=== PATIENT | female | born 1990 | race Caucasian/White ===

== ENCOUNTER 2017-04-20 08:40 | Emergency (ER) | payer OTHER ==
[~2017-04-20] VITALS: Ht 165.1 cm; Wt 61.2 kg
[~2017-04-20 08:40] MED LIST: BENTYL20 MG PO; LYZA0.35 MG PO; MOTRIN800 MG PO; NATURAL IRON65 MG PO; PERCOCET 325 MG1 TA2 PO; POLYTRIM O200 GTT/BO OPH
--- NOTE | 2017-04-20 09:06 | ED GI/GU/ABDOMINAL COMPLAINT ---
History of Present Illness General Chief Complaint: Female Urogenital Problems Stated Complaint: S/P FALL YESTERDAY 4 WEEKS Source: patient, family Exam Limitations: no limitations Vital Signs & Intake/Output Vital Signs & Intake/Output Vital Signs Date Time Temp Pulse Resp B/P B/P Pulse O2 O2 Flow FiO2 Mean Ox Delivery Rate 04/20 0918 Room Air Room Air 04/20 0854 98.9 110 18 115/74 100 Room Air Allergies Coded Allergies: NO KNOWN ALLERGIES (06/15/14) Reconcile Medications FERROUS SULFATE (IRON) 325 MG (65 MG IRON) TABLET 1 TAB PO DAILY ANEMIA ( Reported) Ibuprofen (Motrin) 800 MG TAB 1 TAB PO Q8H PRN PAIN Norethindrone (Lyza) 0.35 MG TABLET 1 TAB PO DAILY BC (Reported) OXYCODONE HCL/ACETAMINOPHEN (Percocet 5-325 MG Tablet) 325 MG/5 MG TAB 1 TAB PO Q4-6 PRN PRN PAIN Polytrim (Polytrim Eye Drops) 10,000 UNIT-1 MG/ML DROPS 1 DROP OPH 4 TIMES/DAY CORNEAL ABRASION Triage Note: PT TO ED S/P FALL DOWN STAIRS LAST NIGHT, PT EXTREMELY HISTRIONIC IN TRIAGE, VERY DIFFICULT TO ASSESS DUE TO CRYING AND HYPERVENTILATING. PT REPORTING SHE IS CURRENTLY 4 WEEKS AND "HAS BEEN BLEEDING FOR TWO DAYS" REPORTING SHE FELL AT [facility] 9PM LAST NIGHT, REPORTING SHE WANTED TO BE SEEN THIS AM "BECAUSE I COULDN'T STAY CALM" PT UNABLE TO QUANITFY HOW MUCH SHE IS BLEEDING, NO GROSS DEFORMITY NOTED ANYWHERE, NO SIGNS OF BRUISING OR TRAUMA, PT REPORTING "EVERY CELL IN MY BODY HURTS" NO CERVICAL POINT TENDERNESS. REPORTING SHE DID NOT HIT HEAD, NO LOC. HAS HAD NO CARE YET, UNABLE TO IDENTIFY IF SHE HAS AN OB, STATING "I DIDNT GET CARE UNTIL I WAS 7 MONTHS WITH MY SON BEFORE" Triage Nurses Notes Reviewed? yes ? y Is pt currently ? No HPI: Patient was out working in the yard all day yesterday. Patient is 4-6 weeks . Patient states that she has been nauseous and vomiting for pretty much the entire . 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 Patient states that he was carrying garbage outside when she felt lightheaded and tripped and fell down a flight of stairs. The stairs were wooden. There was no loss of consciousness. This occurred last night. Since then she has had pain to the right side of her neck that radiates into her right shoulder. The pain increases with movement. She rates the pain at 6 out of 10. The pain is throbbing in nature. Patient is also having pelvic cramping. Patient states that she passed a large blood clot last night and has been spotting since then. The cramping is constant. There are no aggravating or mitigating factors. There is no radiation. She rates the pelvic pain at 4 out of 10. She denies any headache or lightheadedness. There is no blurry vision. Past History Travel History Traveled to [place] past 21 day No Medical History Any Pertinent Medical History? 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 Surgical History Surgical History: non-contributory, N Psychosocial History What is your primary language Monegasque Tobacco Use: Never used ETOH Use: denies use Illicit Drug Use: denies illicit drug use Family History Hx Contributory? No Review of Systems Review of Systems Constitutional: Reports: no symptoms. EENTM: Reports: no symptoms. Respiratory: Reports: no symptoms. Cardiovascular: Reports: no symptoms. GI: Reports: see HPI, abdominal pain, nausea, vomiting. Genitourinary: Reports: no symptoms. Musculoskeletal: Reports: see HPI, neck pain. Skin: Reports: no symptoms. Neurological/Psychological: Reports: no symptoms. Hematologic/Endocrine: Reports: no symptoms. Immunologic/Allergic: Reports: no symptoms. All Other Systems: Reviewed and Negative Physical Exam Physical Exam General Appearance: well developed/nourished, alert, awake, anxious, mild distress Head: atraumatic, normal appearance Eyes: Bilateral: PERRL, EOMI. Ears, Nose, Throat, Mouth: hearing grossly normal, moist mucous membrane Neck: normal inspection, supple, full range of motion, tender lateral, no midline tenderness Respiratory: normal breath sounds, chest non-tender, no respiratory distress, lungs clear Cardiovascular: regular rate/rhythm, normal peripheral pulses Gastrointestinal: normal bowel sounds, soft, no organomegaly, tenderness ( SUPRAPUBIC) Back: normal inspection, normal range of motion Extremities: normal range of motion Neurologic/Psych: no motor/sensory deficits, awake, alert, oriented x 3, normal gait, normal mood/affect Skin: intact, normal color, warm/dry Core Measures ACS in differential dx? No Severe Sepsis Present: No Septic Shock Present: No Progress Differential Diagnosis: ectopic , intrauterine , threatened AB , UTI/pyelo Plan of Care: Orders Procedure Date/time Status TYPE & SCREEN (NOT X-MATCH) 04/20 911 Complete HUMAN BETA HCG TITRE 04/20 857 Complete COMPREHENSIVE METABOLIC PANEL 04/20 857 Complete CBC WITHOUT DIFFERENTIAL 04/20 857 Complete URINALYSIS 04/20 846 Active Laboratory Tests 04/20/17910: Anion Gap 17 H, Estimated GFR > 60, BUN/Creatinine Ratio 15.7, Glucose 93, Calcium 10.2, Total Bilirubin 1.0, AST 15, ALT 25, Alkaline Phosphatase 52, Total Protein 7.7, Albumin 4.7, Globulin 3.0, Albumin/Globulin Ratio 1.6, Beta HCG, Quant < 2.4, CBC w Diff NO MAN DIFF REQ, RBC 4.69, MCV 87.3, MCH 29.3, RDW 13.0, MPV 7.9, Gran % 73.8, Lymphocytes % 22.8, Monocytes % 2.2, Eosinophils % 0.3, Basophils % 0.9, Absolute Granulocytes 4.9, Absolute Lymphocytes 1.5, Absolute Monocytes 0.1 L, Absolute Eosinophils 0, Absolute Basophils 0.1, PUBS MCHC 33.6 Diagnostic Imaging: Viewed by Me: Ultrasound. Discussed w/RAD: Ultrasound. Radiology Impression: PATIENT: BLANCO DIALLO PRESENT AGE: 26 PATIENT ACCOUNT NO: [id number] : 89 LOCATION: [facility] ORDERING PHYSICIAN: CYDNEY JACKSON MD SERVICE DATE: 04/20/17 EXAM TYPE: US - US TRANSVAG EXAMINATION: US TRANSVAGINAL CLINICAL INFORMATION: Four to six weeks . Fell down stairs. Bleeding. Pelvic pain. COMPARISON: None TECHNIQUE: Real-time ultrasound was performed transvaginally using a 8 MHz transducer. FINDINGS: The uterus is retroverted in position. Within the endometrial cavity, no gestational sac/no intrauterine is seen. Thin normal endometrial echo complex measures 3 mm in thickness. Incidental small nabothian cysts. The right ovary measures 4 x 2.2 x 3.0 cm, and the left ovary measures 3.6 x 2.6 x 2.6 cm. Normal ovarian follicles are seen. Normal color Doppler flow in the bilateral ovaries. No evidence of adnexal mass. Other significant findings: Jvish-jm-laqsktkz free fluid is seen posterior to the uterus. IMPRESSION: No intrauterine or gestational sac is seen. No evidence of adnexal mass. Ohgcu-yj-[id number] pelvic free fluid. DICTATED BY: CHUCK HOUSE MD DATE/TIME DICTATED:04/20/171014 [employer] ENGINEER:PAUL DATE/TIME TRANSCRIBED:04/20/171014 CONFIDENTIAL, DO NOT COPY WITHOUT APPROPRIATE AUTHORIZATION. <Electronically signed in Other Vendor System> SIGNED BY: CHUCK HOUSE MD 04/20/17 1029 Initial ED EKG: none Comments: Patient now states that the pelvic cramping and vaginal bleeding and spotting started 5 days ago and that she just passed the clot last night after falling down the stairs. Departure Departure Disposition: HOME OR SELF CARE Condition: Stable Clinical Impression Primary Impression: Miscarriage Secondary Impressions: Cervical strain Qualifiers: Encounter type: initial encounter Qualified Code: S16.1XXA - Strain of muscle, fascia and tendon at neck level, initial encounter Referrals: CHANTALE VAUGHAN DO (PCP/Family) Additional Instructions: use moist heat] take zofran as needed for nausea take flexeril as needed for pain and spasm return for any concerns Departure Forms: Customer Survey General Discharge Information Prescriptions: Current Visit Scripts Cyclobenzaprine HCl 1 TAB PO Q8P #20 TAB Ondansetron (Zofran Odt) 1 TAB SL TID PRN NAUSEA #10 TAB
[2017-04-20 09:22] LABS: ABSOLUTE BASOPHIL COUNT 0.1 /CUMM (0.0-0.2); ABSOLUTE EOSINOPHIL COUNT 0 /CUMM (0.0-0.7); ABSOLUTE GRANULOCYTE CT 4.9 /CUMM (1.4-6.5); ABSOLUTE LYMPH COUNT 1.5 /CUMM (1.2-3.4); ABSOLUTE MONOCYTE COUNT 0.1 /CUMM (0.10-0.60); BASOPHIL % 0.9 % (0.0-2.0); EOSINOPHIL % 0.3 % (0-5); GRANULOCYTE % 73.8 % (42.2-75.2); HEMATOCRIT 40.9 % (37-47); MEAN CORPUSCULAR HGB 29.3 PG (27.0-31.0); MEAN CORPUSCULAR HGB CONC 33.6 G/DL (33.0-37.0); MEAN CORPUSCULAR VOLUME 87.3 FL (81.0-99.0); MEAN PLATELET VOLUME 7.9 FL (7.4-10.4); PLATELET COUNT 252 /CUMM (130-400); RED BLOOD CELL CT 4.69 /CUMM (4.20-5.40); WHITE BLOOD CELL COUNT 6.6 /CUMM (4.8-10.8)
--- NOTE | 2017-04-20 10:29 | ULTRASOUND REPORT ---
EXAMINATION: US TRANSVAGINAL CLINICAL INFORMATION: Four to six weeks . Fell down stairs. Bleeding. Pelvic pain. COMPARISON: None TECHNIQUE: Real-time ultrasound was performed transvaginally using a 8 MHz transducer. FINDINGS: The uterus is retroverted in position. Within the endometrial cavity, no gestational sac/no intrauterine is seen. Thin normal endometrial echo complex measures 3 mm in thickness. Incidental small nabothian cysts. The right ovary measures 4 x 2.2 x 3.0 cm, and the left ovary measures 3.6 x 2.6 x 2.6 cm. Normal ovarian follicles are seen. Normal color Doppler flow in the bilateral ovaries. No evidence of adnexal mass. Other significant findings: Ooram-ze-fmdatjpd free fluid is seen posterior to the uterus. IMPRESSION: No intrauterine or gestational sac is seen. No evidence of adnexal mass. Pqdbr-na-biymumpx pelvic free fluid.
[2017-04-20 10:50] VITALS: BP 106/65
[2017-04-20] MEDS ORDERED: ZOFRAN ODT4 M1 SL (10:50)
[2017-04-20] MEDS ORDERED: CYCLOBENZAPRINE10 M1 PO (10:50)
== END 2017-04-20 10:55 ==
LOC: ERH 08:40
PROVIDERS: Emergency Medicine
DX: S16.1XXA Strain of muscle, fascia and tendon at neck level, initial encounter (principal); O03.9 Complete or unspecified spontaneous abortion without complication; W10.9XXA Fall (on) (from) unspecified stairs and steps, initial encounter; Y92.9 Unspecified place or not applicable; Y93.9 Activity, unspecified
CPT/HCPCS: 76817; 96361; 96374; J2405